=== PATIENT | female | born 1940 | race Caucasian/White ===

== ENCOUNTER 2016-11-11 17:03 | Inpatient (IN) | payer MEDICARE, BC ==
--- NOTE | ~2016-11-11 | EKG ---
PATIENT: NIKITA PANDA UNIT #: [id number] Ventricular Rate: 65 BPM Atrial Rate: 65 BPM P-R Interval: 142 ms QRS Duration: 68 ms Q-T Interval: 368 ms QTC Calculation(Bezet): 382 ms P Blanca: 46 degrees Calculated R Blanca: 51 degrees Calculated T Blanca: 53 degrees Diagnosis Line: Normal sinus rhythm Diagnosis Line: Nonspecific ST and T wave abnormality Diagnosis Line: Abnormal ECG Diagnosis Line: When compared with ECG of 08-APR-2013 09:32, Diagnosis Line: No significant change was found Diagnosis Line: Confirmed by LAURA WASHINGTON MD ([id number]) on 11/12/2016 Diagnosis Line: 11:18:35 PM INTERPRETING MD: FELIX MIXON
--- NOTE | ~2016-11-11 | CT57 ---
[facility] A Service of [facility] & [facility] RADIOLOGY TEXT RESULTS PATIENT: NIKITA PANDA LOCATION: [facility] 569- : 42 UNIT #: [id number] AGE: [address]: Slava Medina MD SEX: F ORDER DR: [id number] [facility] [address] [place], [place] [address] [id number] E MR#: [id number] Acc #: [id number] NAME: NIKITA PANDA. : 1940 SEX: F STUDY DATE/TIME: 11/11/2016 17:22 UNIT: [facility] ROOM: STUDY DESCRIPTION: CT Chest Wo Cont Attending Physician: Vladislav Jimenez M.D. Ordering Physician: Ed Doctor [id number] [facility] Primary Care Physician: Kobi Smalls M.D. MEDICAL IMAGING REPORT This report is preliminary unless electronic signature is present EXAM CT chest without contrast HISTORY Cough and shortness of air for [address] exam was performed with one or more of the following radiation dose reduction techniques: automatic exposure control, adjustment of mA and/or kV according to patient size, and iterative reconstruction. FINDINGS CT chest without contrast demonstrates stable mixed density nodule in the medial left upper lobe abutting the mediastinal pleura, containing a small fat component, compatible with a pulmonary hamartoma, measuring 1.8 cm x 1.3 cm, stable compared to multiple prior CTs dating back to 11/24/2013. Interval resolution of a 6 mm nodule in the medial left upper lobe abutting the mediastinal pleura compared to prior CT 12/26/2014. No focal airspace infiltrates. Advanced bilateral emphysema. Mild linear subpleural scarring or atelectasis in the posterior lower lobes. No pleural effusions. There is a new 6 mm subpleural nodule in the posterior margin of the superior segment left lower lobe. Recommend followup CT chest in 6 months. No adenopathy. Images of the upper abdomen demonstrate fatty replacement of the pancreas and punctate pancreatic calcifications compatible with chronic pancreatitis. IMPRESSION 1. Severe bilateral emphysema. 2. No active disease in the lungs. No focal infiltrates. 3. 6 mm subpleural nodule in the posterior margin of the superior segment left lower lobe is new compared to CT 12/26/2014. Followup CT chest in 6 months is recommended. 4. Stable pulmonary hamartoma in the medial left upper lobe measuring 1.8 cm x 1.3 cm. Interval resolution of an adjacent 6 mm subpleural STS. [facility] A Service of [facility] & [facility] RADIOLOGY TEXT RESULTS PATIENT: NIKITA PANDA LOCATION: [facility] 569-01 : 42 UNIT #: [id number] AGE: [address]: Slava Medina MD SEX: F ORDER DR: nodule in the medial left upper lobe compared to the prior CT 12/26/2014. 5. Findings in the upper abdomen include chronic pancreatitis and fatty replacement of pancreas. Dictated by... Vikash Esparza M.D. THIS IS AN ELECTRONICALLY VERIFIED REPORT Vikash Esparza M.D. at 11/11/2016 10:37 PM DFLaisha/maryan TD: 11/11/2016 21:39 JOB #: [id number] MEDICAL IMAGING REPORT Page 1 of 1 COPY
--- NOTE | ~2016-11-11 | CO ---
Unit #: [id number] #: [id number] Patient: NIKITA PANDA [id number] [address] [address] [id number] I MR#: [id number] NAME: NIKITA PANDA. ROOM: 569 Age: 76 Sex: F Admission Date: 11/11/2016 : 1940 Attending Physician: Carolyn Medina M.D. Primary Care Physician: Kobi Smalls M.D. CONSULTATION REPORT REASON FOR CONSULTATION SVT. HISTORY OF PRESENT ILLNESS This is a 76-year-old white female with a prior cardiac history of a negative Cardiolite stress test in 2010 and a cardiac cath done approximately 2007 with nonobstructive disease per patient. This patient presented to the ER with increasing shortness of breath. She had been treated with antibiotics and a steroid taper for about a week. Yesterday after exposure to bleach fumes her shortness of breath worsened. She was admitted with acute exacerbation of COPD, started on antibiotics. During the night she had a short run of SVT. She is currently normal sinus rhythm in the 70s, denies chest pain or palpitations. Her breathing is somewhat better today. PAST MEDICAL HISTORY 1. Hypertension. 2. Hyperlipidemia. 3. Hypothyroid. 4. History of Graves disease. 5. History of seizures as a child. 6. Cardiac catheterization 2007, records unavailable but nonobstructive disease per patient. 7. Cardiolite stress test 2010 negative for ischemia. 8. Former tobacco abuse. 9. COPD. 10. Obstructive sleep apnea, uses a BiPAP machine at night. PAST SURGICAL HISTORY 1. x2. 2. Partial hysterectomy, total hysterectomy in 1983. 3. Breast biopsies, multiple. 4. Drainage of abscess in right hip. 5. Pelvic mass removal in 1987. 6. Bladder suspension in 2010. 7. Radioactive ablation of the thyroid. 8. Bilateral cataract extraction. 9. Exploratory laparotomy. FAMILY HISTORY Positive family history of coronary artery disease, her mother had CAD, at 85. Father with OR at 65. Brother with OR at 55. Brother afib. Unit #: [id number] #: [id number] Patient: NIKITA PANDA SOCIAL HISTORY She is a former smoker, quit 20 years ago, rare social drinker. ALLERGIES 1. Iodine. 2. Moxifloxacin. HOME MEDICATIONS 1. Spiriva two puffs daily. 2. Advair Diskus two puffs b.i.d. 3. Toprol-XL 50 mg p.o. daily. 4. Cozaar 100 mg p.o. daily. 5. Levothyroxine 75 mcg p.o. daily. 6. Crestor 10 mg p.o. daily. 7. ClariSpray two sprays nasally daily. 8. Zyrtec 10 mg p.o. daily. 9. CoQ10 100 mg p.o. daily. 10. Caltrate Plus one p.o. daily. 11. Vitamin D3 5000 units p.o. daily. 12. Probiotic Pearls one p.o. daily. 13. Centrum Silver one p.o. daily. REVIEW OF SYSTEMS Positive for cough and shortness of breath. Positive for fatigue. Otherwise negative except for what is stated in the HPI. PHYSICAL EXAMINATION GENERAL: This is a pleasant, 76-year-old female. She is alert and oriented x3, resting in bed in no acute distress. VITAL SIGNS: Her temperature 97.7, heart rate 70, 93% sat, respirations 19, blood pressure 190/89 to 144/79. HEENT: Head is atraumatic and normocephalic. Pupils are equal and round. Mucous membranes are moist. NECK: Supple. Trachea midline. Negative for JVD. LUNGS: Clear to auscultation. CARDIOVASCULAR: S1, S2. Regular rate and rhythm. Negative for murmur, rubs or gallops. ABDOMEN: Soft, nontender, and nondistended. EXTREMITIES: Pulses are palpable. No pedal edema. No cyanosis. DP/PT 2+. NEUROLOGIC: Alert and oriented x3. Moves all extremities equally and follows commands without difficulty. DIAGNOSTIC STUDIES LABORATORY RESULTS: Sodium 139, potassium 4, chloride 104, CO2 25, BUN 21, creatinine 0.7, glucose 182, hemoglobin 15.3, hematocrit 46.3, white blood cell count 8.6, platelets 264, AST 17, ALT 26, alkaline phosphatase 64. IMAGING: Chest x-ray shows stable mild cardiac enlargement. Underlying emphysema is stable. There is no dense airspace disease, pleural effusion or pneumothorax. CT of the chest shows severe bilateral emphysema. A 6 mm subpleural nodule in the posterior margin of the superior segment left lower lobe is new compared to a CT in 12/26/2014. Followup CT of the chest in six months is recommended. Stable pulmonary hamartoma in the medial left upper lobe measuring 1.8 x 1.3 cm. Findings in the upper abdomen include Unit #: [id number] #: [id number] Patient: NIKITA PANDA chronic pancreatitis and fatty replacement of pancreas. CARDIOVASCULAR: EKG shows normal sinus rhythm. No acute ischemic changes noted. ASSESSMENT 1. Acute exacerbation of chronic obstructive pulmonary disease. 2. Supraventricular tachycardia, nonsustained. 3. Hypertension. 4. Hyperlipidemia. 5. Hypothyroidism. 6. Obstructive sleep apnea, uses BiPAP with sleep. PLAN This is a 76-year-old white female with recurrent acute exacerbations of COPD. SVT likely due to her pulmonary status. Will obtain a 2D echo to evaluate her LV function. Check lipid profile in the a.m. Optimize beta lo for heart rate control. Check BMP and magnesium level in the a.m. Obtain medical records from Dr. Nettles. Continue statin and ARB. Thank you for asking us to see this patient. We appreciate the consult. Dictated by... Nae Pope APRN for David Mccallum M.D. DOROTHEA/ady TD: 11/12/2016 20:33 JOB #: [id number] CONSULTATION REPORT Page 1 of 1 X X CONSULTATION REPORT
--- NOTE | ~2016-11-11 | CR72 ---
[facility] A Service of [facility] & [facility] RADIOLOGY TEXT RESULTS PATIENT: NIKITA PANDA LOCATION: [place] [address] : 42 UNIT #: [id number] AGE: [address]: Slava Medina MD SEX: F ORDER DR: [id number] [facility] [address] [place], [place] [address] [id number] E MR#: [id number] Acc #: [id number] NAME: NIKITA PANDA : 1940 SEX: F STUDY DATE/TIME: 11/11/2016 15:49 UNIT: [facility] ROOM: STUDY DESCRIPTION: CR Chest Single View Portable Attending Physician: Vladislav Jimenez M.D. Ordering Physician: Tom Villalta M.D. Primary Care Physician: Kobi Smalls M.D. MEDICAL IMAGING REPORT This report is preliminary unless electronic signature is present EXAM Portable chest radiograph. HISTORY Short of breath, cough, congestion for 1 week. COMPARISON Comparison is made to a prior exam from 08/01/2005. FINDINGS Cardiomegaly is present without evidence of vascular congestion. There are background emphysematous changes. This patient has patchy nodular densities identified within both lungs, which I don't clearly identify on the prior PA and lateral chest radiograph from 08/01/2005. Comparison was also made to an exam from July of 2016. These certainly could reflect multifocal pneumonia; however, given background emphysematous changes, I would suggest very short-term CT follow-up. CT could also be considered for further evaluation. No pneumothorax or pleural effusion seen. Dictated by... Karmen Escudero M.D. THIS IS AN ELECTRONICALLY VERIFIED REPORT Karmen Escudero M.D. at 11/12/2016 5:23 PM AFF/js TD: 11/11/2016 18:59 JOB #: [id number] MEDICAL IMAGING REPORT Page 1 of 1 COPY
--- NOTE | ~2016-11-11 | DS ---
Unit #: [id number] #: [id number] Patient: NIKITA PANDA [id number] [place] [id number] [facility]. [place], [place] [address] [id number] I MR#: [id number] NAME: NIKITA PANDA. ROOM: 569 Age: 76 Sex: F Admission Date: 11/11/2016 : 1940 Discharge Date: 11/15/2016 Attending Physician: Carolyn Medina M.D. Primary Care Physician: Kobi Smalls M.D. DISCHARGE SUMMARY HISTORY OF PRESENT ILLNESS This is a 76-year-old lady with a history of COPD. Patient stated that she was out with her neighbor who was power-washing her house, and during that time she inhaled some bleach. Patient stated that the following morning patient developed progressive shortness of air. No vision changes, no fever, no chills, no nausea, no vomiting, and no diarrhea. However, the patient became progressively short of air. When she came to the emergency room, blood pressure was 209/99, white count 11%, and patient was saturating 93% on two liters, and she was therefore admitted to the hospital. HOSPITAL COURSE Cardiology was consulted, and Dr. Mccallum saw the patient. The patient had an echocardiogram which showed impaired LV relaxation. Right ventricular systolic pressure was 38, and patient was found to have no ischemia, however, is still requiring four liters of O2 on discharge. The chest x-ray on presentation showed patchy nodular densities consistent with a pneumonia. Therefore, patient was placed on antibiotics with azithromycin and Rocephin for five days. Patient improved gradually, becoming more active, and therefore, on the seventh she was discharged to home with five days of antibiotics. She is to follow up with Kajal Adkins in approximately two weeks. The patient was found to be hypoxic on four liters and was going to be discharged with home oxygen. She will be reevaluated in the course of a month. DISCHARGE MEDICATIONS 1. Albuterol nebulizer every 4 hours as needed for shortness of air. 2. Advair 250/50 at 2 puffs b.i.d. 3. ClariSpray 2 sprays daily. 4. Tiotropium 2.5 mg Respimat 2 puffs daily. 5. Zyrtec 10 mg daily. 6. Metoprolol 50 mg daily. 7. Cozaar 100 mg daily. 8. Crestor 10 mg daily. 9. Coenzyme CoQ 100 mg daily. 10. Caltrate D 1 tablet daily. 11. Multivitamins 1 tablet daily. 12. Lactobacillus daily. 13. Levothyroxine 75 mcg daily. 14. Cholecalciferol 5000 units daily. 15. Omnicef 300 mg p.o. b.i.d. for 5 days. 16. Oxygen at 4 liters continuously. Unit #: [id number] #: [id number] Patient: NIKITA PANDA FOLLOWUP 1. 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 2. With Kajal Adkins in two weeks. DIET Healthy heart. ACTIVITY As tolerated using oxygen. CONSULTATIONS Dr. Mccallum, Cardiology. DISCHARGE DIAGNOSES 1. Community-acquired pneumonia. 2. Chronic obstructive pulmonary disease exacerbation. 3. Acute on chronic respiratory failure. 4. Diastolic congestive heart failure. 5. Hypertensive urgency. 1. Dictated by... Edelmira Spann TD: 11/17/2016 17:52 JOB #: [id number] DISCHARGE SUMMARY Page 1 of 1 X Slava Medina MD X DISCHARGE SUMMARY
--- NOTE | ~2016-11-11 | HP ---
Unit #: [id number] #: [id number] Patient: NIKITA PANDA [id number] [address] [place], [place] [address] [id number] I MR#: [id number] NAME: NIKITA PANDA ROOM: 569 Age: 76 Sex: F Admission Date: 11/11/2016 : 1940 Attending Physician: Carolyn Medina M.D. Primary Care Physician: Kobi Smalls M.D. HISTORY AND PHYSICAL Ms. Panda is a 76-year-old lady with a history of COPD. She stated that yesterday she was out with her neighbor who was power washing her house and during that time the patient inhaled bleach. The patient stated that the following day, which was this morning, the patient developed progressive shortness of air, nothing (1) , having no vision changes, no fevers, chills, nausea, vomiting, diarrhea, however, progressive shortness of breath and chest tightness. The patient was brought to the emergency room where she was found to be hypertensive. The blood pressure was 209/99, white count 11% and the patient was satting 93% on 2 L where usually she is out of room air. Therefore, the patient was admitted to the hospital. The chest x-ray did not show any evidence of focal lesions. PAST MEDICAL HISTORY Significant for: 1. Hypertension. 2. Hyperlipidemia. 3. Chronic obstructive pulmonary disease. 4. Hypothyroidism, following surgeries for Graves disease. 5. History of seizures, following treatment for Graves disease. 6. History of seizures. 7. History of GERD. 8. History of seasonal allergies. 9. History of pancreatic calcification. 10. History of chronic constipation. PAST SURGICAL HISTORY Significant for: 1. x2. 2. Partial hysterectomy and total hysterectomy in 1983. 3. Breast biopsies in 1986, 1987, and 1988. 4. History of drainage of abscess in the right hip. 5. History of removal of the pelvic mass in 1987. 6. History of bladder suspension in 2010. 7. Radioactive ablation of the thyroid. 8. Bilateral cataract extraction and exploratory laparotomy. 9. Patient is to have a 30 to 40 pack year history of smoking, quit 20 years ago. 10. Occasional social alcohol. 11. No history of polysubstance abuse. FAMILY HISTORY Significant for hypertension, coronary artery disease. Unit #: [id number] #: [id number] Patient: NIKITA PANDA ALLERGIES Avelox. HOME MEDICATIONS Spiriva 2 puffs inhaled daily; Advair two puffs inhaled twice daily; Toprol XL 50 mg daily; Cozaar 100 mg daily; levothyroxine 75 mcg daily; Crestor 10 mg daily; Flonase two sprays daily; Zyrtec 10 mg daily; Coenzyme Q 10 mg daily; Caltrate 1 tablet daily; vitamin B3 daily; probiotics daily; and multivitamin daily. REVIEW OF SYSTEMS As per the history of present illness. Otherwise a 12 point review of system was negative. PHYSICAL EXAMINATION VITAL SIGNS: T. current 97.4, pulse 78, respiratory rate 16, blood pressure 198/105. Saturating 93% on 2 liters nasal cannula. Ins and outs are not recorded. HEENT: Extraocular movements are intact. CHEST: Clear to auscultation bilaterally. CARDIOVASCULAR: Regular rate, no gallop. ABDOMEN: Soft, nontender, nondistended. EXTREMITIES: No evidence of edema. DIAGNOSTIC STUDIES IMAGING STUDIES: CT chest without contrast shows bilateral severe emphysema, stable pulmonary hamartoma, 6 mm pulmonary nodule, followup CT in six months. Cardiomegaly. LABORATORY STUDIES: Cardiac enzymes are negative x2. Flu swab negative. Basic metabolic panel shows glucose of 252, otherwise liver functions are within normal limits. White count 11.1, hemoglobin 16, platelets of 299. ASSESSMENT AND PLAN 1. COPD exacerbation. Will get a viable respiratory swab, continue steroids, and treat as an acute bronchitis five days (2) . 2. Hypertension. Patient states he is significantly anxious and has been trying Xanax to see if the patient can tolerate it. Will also try p.r.n. hydralazine. Thank you very much for consult and allowing us to participate in her care. Dictated by Edelmira Spann TD: 11/12/2016 05:06 JOB #: [id number] Unit #: [id number] #: [id number] Patient: NIKITA PANDA HISTORY AND PHYSICAL Page 1 of 1 X Slava Medina MD HISTORY AND PHYSICAL
--- NOTE | ~2016-11-11 | CR63 ---
[facility] A Service [facility] RADIOLOGY TEXT RESULTS PATIENT: NIKITA PANDA LOCATION: [facility] 56- : 42 UNIT #: [id number] AGE: [address]: Slava Medina MD SEX: F ORDER DR: [id number] [facility] [address] [place], [place] [address] [id number] I MR#: [id number] Acc #: [id number] NAME: NIKITA PANDA. : 1940 SEX: F STUDY DATE/TIME: 11/12/2016 8:47 UNIT: [facility] ROOM: [facility] STUDY DESCRIPTION: CR Chest 2 View Attending Physician: Slava Medina Ordering Physician: Carolyn Medina M.D. Primary Care Physician: Kobi Smalls M.D. MEDICAL IMAGING REPORT This report is preliminary unless electronic signature is present EXAM Two view chest, 11/12/16 HISTORY Short of air. TECHNIQUE PA and lateral radiographs of the chest are presented. COMPARISON STUDIES 11/11/16. Comparison also made to CT examination 11/11/16. FINDINGS No acute bony abnormality. Stable mild cardiac enlargement. Underlying emphysema is stable. The dominant 1.8 cm nodule adjacent to the left lateral aspect of the aortic arch in the left upper lobe is less conspicuous on plain radiography than on yesterday's CT examination. Given the underlying emphysema, it is suspicious for potential malignancy. Characterization with CT PET scan is recommended. A smaller 6 mm nodule in the posteromedial left lower lobe is not evident on the plain radiograph. No new nodules are seen. There is no dense airspace disease, pleural effusion or pneumothorax. Dictated by... Jose José M.D. THIS IS AN ELECTRONICALLY VERIFIED REPORT Jose José M.D. at 11/13/2016 6:36 PM Lizbeth TD: 11/12/2016 11:51 [facility] A Service [facility] RADIOLOGY TEXT RESULTS PATIENT: NIKITA PANDA LOCATION: [facility] 569-01 : 42 UNIT #: [id number] AGE: [address]: Slava Medina MD SEX: F ORDER DR: JOB #: [id number] MEDICAL IMAGING REPORT Page 1 of 1 COPY
[2016-11-11 15:29] LABS: HEMATOCRIT 48.7 % (35.0-45.0); LYMPHOCYTE# 0.4 X10e3 (1.0-3.5); LYMPHOCYTE% 3.2 % (17.0-45.0); MEAN CELL VOLUME 92.2 FL (83-96); MEAN CORPUSCULAR HEMOGLOBIN 30.3 PG (28-34); MEAN CORPUSCULAR HGB CONC 32.9 g/dL (30-36); MEAN PLATELET VOLUME 7.5 FL (6.5-11.5); MONOCYTE# 0.2 X10e3 (0-1.0); MONOCYTE% 1.4 % (3.0-12.0); NEUTROPHIL# 10.6 X10e3 (1.5-7.1); NEUTROPHIL% 95.4 % (40-75); PLATELET COUNT 299 X10e3 (140-420); RED BLOOD COUNT 5.28 X10e (3.90-5.30); RED CELL DISTRIBUTION WIDTH 14.7 % (11.0-15.5); WHITE BLOOD COUNT 11.1 X10e3 (4.0-10.5)
[2016-11-11 15:32] LABS: DIFF IND NO
[2016-11-11 15:37] LABS: POC - CKMB 2.4 ng/mL (0.0-7.9); POC - TROPONIN <0.05 ng/mL (<=0.05)
[2016-11-11 16:06] LABS: ALBUMIN SERUM 3.7 g/dL (3.5-5.0); BILIRUBIN, DIRECT 0.1 mg/dL (0.0-0.2); BILIRUBIN,TOTAL 1.1 mg/dL (0.2-2.0); BUN/CREATININE RATIO 26.25; CALCIUM SERUM 9.3 mg/dL (8.4-10.2); CREATININE SERUM 0.8 mg/dL (0.6-1.4); GLOM FILT RATE Estimated 72.7 mL/min (>60); POTASSIUM 4.5 mmol/L (3.5-5.1)
[2016-11-11 16:20] LABS: INFLUENZA A NEG (NEG); INFLUENZA B NEG (NEG)
[2016-11-11 17:01] LABS: POC - CKMB 2.1 ng/mL (0.0-7.9); POC - TROPONIN <0.05 ng/mL (<=0.05)
[~2016-11-11 17:03] MED LIST: ADVAIR 1001 DISK W/D PO; ADVAIR 250-501 EAC1 IH; ADVAIR 250-501 EACH IH; ASPIRIN PO; ASPIRIN81 MG PO; BENICAR PO; BIAXIN PO; CALCIUM 500 + D1 TAB PO; CALTRATE 600+D PO; CALTRATE-600/VI1 TA1 PO; CARAFATE1 G PO; CENTRUM SILVER PO; CERTAGEN PO; COMBIVENT INH14.7 GM INH; COMBIVENT RESPIM4 GM IH; COMBIVENT14.7 GM INH; COZAAR100 MG PO; CRESTOR PO; CRESTOR10 MG PO; ESTROVEN PO; FLONASE16 GM; GUAIFENESIN600 M1 PO; JOINT MOVEMENT PO; KEPPRA500 M2 PO; MEGA RED PO; MEGARED; MUCINEX DM1 TAB.SR . PO; MUCINEX PO; NEXIUM PO; PLAVIX PO; SYNTHROID PO; SYNTHROID75 MCG PO; TOPROL XL PO; VITAMIN D1000 UNIT PO; VITAMIN D2000 UNIT PO; [UNRECOGNIZED DRUG - OTHER]
[2016-11-11 17:06] LABS: POC - CKMB 1.9 ng/mL (0.0-7.9); POC - TROPONIN <0.05 ng/mL (<=0.05)
[2016-11-11] MEDS ORDERED: SPIRIVA18 MCG INH (19:01)
[2016-11-11] MEDS ORDERED: COZAAR100 MG PO (19:02)
[2016-11-11] MEDS ORDERED: ADVAIR 2501 DISK W/1 INH (19:02)
[2016-11-11] MEDS ORDERED: TOPROL XL50 MG PO (19:02)
[2016-11-11] MEDS ORDERED: CRESTOR10 MG PO (19:03)
[2016-11-11] MEDS ORDERED: LEVOTHYROXINE75 MC1 PO (19:03)
[2016-11-11] MEDS ORDERED: CLARISPRAY9.9 ML (19:04)
[2016-11-11] MEDS ORDERED: ZYRTEC10 M2 PO (19:05)
[2016-11-11] MEDS ORDERED: CO Q10100 MG PO (19:05)
[2016-11-11] MEDS ORDERED: CALTRATE PLUS T1 TAB PO (19:06)
[2016-11-11] MEDS ORDERED: VITAMIN D35000 UNIT PO (19:06)
[2016-11-11] MEDS ORDERED: CENTRUM SILVER1 EAC3 PO (19:07)
[2016-11-11] MEDS ORDERED: PROBIOTIC PEAR1 EACH PO (19:07)
[2016-11-12 05:39] LABS: BASOPHIL% 0.1 % (0-2.5); HEMATOCRIT 46.3 % (35.0-45.0); HEMOGLOBIN 15.3 gm/dL (12.0-16.0); LYMPHOCYTE# 0.8 X10e3 (1.0-3.5); LYMPHOCYTE% 9.2 % (17.0-45.0); MEAN CELL VOLUME 92.3 FL (83-96); MEAN CORPUSCULAR HEMOGLOBIN 30.6 PG (28-34); MEAN CORPUSCULAR HGB CONC 33.1 g/dL (30-36); MEAN PLATELET VOLUME 7.6 FL (6.5-11.5); MONOCYTE# 0.2 X10e3 (0-1.0); MONOCYTE% 2.3 % (3.0-12.0); NEUTROPHIL# 7.6 X10e3 (1.5-7.1); NEUTROPHIL% 88.4 % (40-75); PLATELET COUNT 264 X10e3 (140-420); RED BLOOD COUNT 5.01 X10e (3.90-5.30); RED CELL DISTRIBUTION WIDTH 14.8 % (11.0-15.5); WHITE BLOOD COUNT 8.6 X10e3 (4.0-10.5)
[2016-11-12 05:40] LABS: DIFF IND NO
[2016-11-12 06:14] LABS: BLOOD UREA NITROGEN 21 mg/dL (9-23); CARBON DIOXIDE 25 mmol/L (22-31); CHLORIDE 104 mmol/L (100-111); CREATININE SERUM 0.7 mg/dL (0.6-1.4); GLOM FILT RATE Estimated 85.4 mL/min (>60); GLUCOSE FASTING 186 mg/dL (70-110); SODIUM 139 mmol/L (135-145)
[2016-11-12 06:26] LABS: PROCALCITONIN <0.05 NG/ML
[2016-11-13 06:41] LABS: HEMATOCRIT 45.9 % (35.0-45.0); MEAN CELL VOLUME 92.7 FL (83-96); MEAN CORPUSCULAR HEMOGLOBIN 30.3 PG (28-34); MEAN CORPUSCULAR HGB CONC 32.7 g/dL (30-36); MEAN PLATELET VOLUME 7.5 FL (6.5-11.5); RED BLOOD COUNT 4.95 X10e (3.90-5.30); RED CELL DISTRIBUTION WIDTH 14.8 % (11.0-15.5); WHITE BLOOD COUNT 11.4 X10e3 (4.0-10.5)
[2016-11-13 07:08] LABS: BUN/CREATININE RATIO 32.22; CREATININE SERUM 0.9 mg/dL (0.6-1.4); POTASSIUM 4.1 mmol/L (3.5-5.1)
[2016-11-13 14:11] LABS: MAGNESIUM 2.1 mg/dL (1.6-3.0)
[2016-11-15 05:59] LABS: HEMATOCRIT 46.6 % (35.0-45.0); HEMOGLOBIN 15.1 gm/dL (12.0-16.0); MEAN CELL VOLUME 94.2 FL (83-96); MEAN CORPUSCULAR HEMOGLOBIN 30.4 PG (28-34); MEAN CORPUSCULAR HGB CONC 32.3 g/dL (30-36); MEAN PLATELET VOLUME 7.6 FL (6.5-11.5); RED BLOOD COUNT 4.95 X10e (3.90-5.30); WHITE BLOOD COUNT 7.2 X10e3 (4.0-10.5)
[2016-11-15 06:40] LABS: BUN/CREATININE RATIO 26.25; CALCIUM SERUM 8.9 mg/dL (8.4-10.2); CREATININE SERUM 0.8 mg/dL (0.6-1.4); GLOM FILT RATE Estimated 72.7 mL/min (>60); POTASSIUM 4.4 mmol/L (3.5-5.1)
[2016-11-15] MEDS ORDERED: OMNICEF300 MG PO (17:13)
[2017-01-22] MEDS ORDERED: PANTOPRAZOLE SO40 MG PO (15:01)
== END 2016-11-15 17:51 | disposition home or self-care (01) | DRG 189 ==
LOC: CED 17:03 → C5B 19:25 → C5C 21:48
PROVIDERS: Emergency Medicine; Internal Medicine Cardiovascular Disease; Internal Medicine Pulmonary Disease
DX: J96.21 Acute and chronic respiratory failure with hypoxia (principal); J18.9 Pneumonia, unspecified organism; J44.0 Chronic obstructive pulmonary disease with (acute) lower respiratory infection; I50.30 Unspecified diastolic (congestive) heart failure; J44.1 Chronic obstructive pulmonary disease with (acute) exacerbation; I47.1 Supraventricular tachycardia; I16.0 Hypertensive urgency; Z91.041 Radiographic dye allergy status; Z90.710 Acquired absence of both cervix and uterus; G47.33 Obstructive sleep apnea (adult) (pediatric); Z87.891 Personal history of nicotine dependence; E78.5 Hyperlipidemia, unspecified
CPT/HCPCS: 36415; 71010; 71020; 71250; 80048; 80061; 80076; 82308; 82553; 83735; 84484; 85025; 85027; 87070; 87205; 87633; 87804; 93005; 93306; 94640; 94760; 94762; 97161; 99285; G8978-GP; G8979-GP; G8980-GP; J0360; J0456; J0696; J1650; J2930

== ENCOUNTER → 2017-01-22 | Day surgery (SDC) | payer MEDICARE, BC ==
[~2017-01-22] MED LIST changes: +ADVAIR 2501 DISK W/1 INH; +CALTRATE PLUS T1 TAB PO; +CENTRUM SILVER1 EAC3 PO; +CLARISPRAY9.9 ML; +CO Q10100 MG PO; +LEVOTHYROXINE75 MC1 PO; +OMNICEF300 MG PO; +PANTOPRAZOLE SO40 MG PO; +PROBIOTIC PEAR1 EACH PO; +SPIRIVA18 MCG INH; +TOPROL XL50 MG PO; +VITAMIN D35000 UNIT PO; +ZYRTEC10 M2 PO
--- NOTE | ~2017-01-22 | OR ---
Unit #: [id number] #: [id number] Patient: NIKITA PANDA [id number] [address] [place], [place] [address] [id number] O MR#: [id number] NAME: NIKITA PANDA ROOM: Date of Procedure: 01/22/2017 Admission Date: 01/22/2017 Surgeon: Shadi Aaron M.D. : 1940 Attending Physician: Shadi Aaron M.D. Referring Physician: Shadi Aaron M.D. Primary Care Physician: Kobi Smalls M.D. OPERATIVE REPORT PRIMARY CARE PHYSICIAN Kobi Smalls M.D. PREOPERATIVE DIAGNOSES The patient presented with history of dyspepsia. In addition, she needs colorectal cancer surveillance having had personal history of colon polyps. PROCEDURES PERFORMED 1. Upper gastrointestinal endoscopy and biopsy. 2. Upper gastrointestinal endoscopy and dilation as well as sigmoidoscopy for an attempted colonoscopy. POSTOPERATIVE DIAGNOSES For upper endoscopy: 1. The patient had mild diffuse prepyloric antral gastritis. A biopsy obtained from the antrum for CLOtest. 2. Distal esophageal ring. The latter was felt to be nonobstructing, but was dilated using a 60-[place] dilator. 3. Rest of the examination up to third part of duodenum was normal. For colonoscopy: 1. The examination was extremely difficult due to severe sigmoid diverticulosis and stricture in the sigmoid. The procedure was attempted with a pediatric colonoscope followed by an upper GI scope with identical outcome. Intubation beyond the mid to proximal sigmoid was impossible due to extremely acute superior sigmoidal angle and high risk of perforation with perseverance and persistence. The procedure was therefore aborted. RECOMMENDATIONS The patient should not have any attempted colonoscopy in the future. She was advised to use pantoprazole 40 mg p.o. daily. She will be followed up in the office in 3 months' time. SEDATION USED MAC. DESCRIPTION OF PROCEDURE Following detailed explanation of the potential risks and complications of an upper endoscopy and a colonoscopy, namely perforation, bleeding, and complications related to sedation, the patient was brought to GI lab and laid in the left lateral decubitus position. Lubricated tip of the Olympus video upper endoscope was passed through the bite block into the proximal esophagus under direct vision. The entire esophageal mucosa was Unit #: [id number] #: [id number] Patient: NIKITA PANDA examined and the patient was noted to have distal esophageal mucosal ring. The latter was felt to be nonobstructing. The scope was then advanced into the gastric cavity and the latter was insufflated. Mucosa of the fundus, body, and antrum examined and mild diffuse prepyloric antral erythema was noted indicating antral gastritis. Pylorus was intubated with visualization of the normal duodenal bulb and second and third part of the duodenum. Upon withdrawal and retroflexion, incisura, cardia, and greater curve examined and a biopsy obtained from the antrum for CLOtest. The scope was then withdrawn in the distal esophagus. Entire esophageal mucosa was examined all the way up to pharynx. No additional findings noted. A 60-[place] dilator was introduced through the oral cavity and advanced into the esophagus. Relook endoscopy showed minimal bleeding and the area of dilation being affected. It was thoroughly washed with water and good hemostasis was achieved. The scope was then withdrawn all the way up to pharynx. No additional findings noted. The examination table was then turned by 180 degrees and the patient positioned for a colonoscopy. A digital rectal examination was performed, which was normal. Lubricated tip of the Olympus video colonoscope was inserted through the anus and advanced under direct vision. The scope was advanced, past rectum into the sigmoid colon. Severe tight diverticular disease was noted making intubation was very difficult and with a high risk of perforation. The scope was therefore withdrawn and replaced with an upper GI scope with identical outcome. The patient was having hard time retaining air and frequently passing the insufflated air back immediately making intubation fraught with danger and perforation. The scope was therefore withdrawn. The patient returned to the recovery area. She tolerated the procedure without any postprocedure complications. Dictated by... Edelmira Carrion TD: 01/22/2017 23:59 JOB #: [id number] OPERATIVE REPORT Page 1 of 1 X Shadi Aaron MD PROCEDURE OPERATIVE NOTE
== END | disposition home or self-care (01) ==
LOC: COPS 12:06
DX: Z12.11 Encounter for screening for malignant neoplasm of colon (principal); K29.70 Gastritis, unspecified, without bleeding; K22.2 Esophageal obstruction; K57.30 Diverticulosis of large intestine without perforation or abscess without bleeding; K56.69 Other intestinal obstruction; E03.9 Hypothyroidism, unspecified; I10 Essential (primary) hypertension; G47.30 Sleep apnea, unspecified; E05.00 Thyrotoxicosis with diffuse goiter without thyrotoxic crisis or storm; J44.9 Chronic obstructive pulmonary disease, unspecified; K21.9 Gastro-esophageal reflux disease without esophagitis; Z86.010 Personal history of colon polyps; Z87.891 Personal history of nicotine dependence; Z91.041 Radiographic dye allergy status; Z91.040 Latex allergy status; Z88.1 Allergy status to other antibiotic agents; Z79.51 Long term (current) use of inhaled steroids; Z79.899 Other long term (current) drug therapy; Z90.710 Acquired absence of both cervix and uterus; Z98.41 Cataract extraction status, right eye; Z98.42 Cataract extraction status, left eye; Z98.890 Other specified postprocedural states
CPT/HCPCS: 87077

== ENCOUNTER → 2017-02-05 | Outpatient (CLI) | payer MEDICARE, BC ==
--- NOTE | ~2017-02-05 | US84 ---
[id number] [address] [address] [id number] O MR#: [id number] Acc #: [id number] NAME: NIKITA PANDA : 1940 SEX: F STUDY DATE/TIME: 02/05/2017 9:23 UNIT: [facility]IV ROOM: STUDY DESCRIPTION: US LE Veins Complete [place] Stdy Attending Physician: Kobi Smalls M.D. Referring Physician: Kobi Smalls M.D. Ordering Physician: Kobi Smalls M.D. Primary Care Physician: Kobi Smalls M.D. MEDICAL IMAGING REPORT This report is preliminary unless electronic signature is present. EXAM Bilateral lower extremity venous duplex 02/05/2017 HISTORY Bilateral lower extremity edema for 4 days. Evaluate for deep vein thrombosis. TECHNIQUE Venous ultrasound examination of both lower extremities was performed using grayscale, spectral Doppler and color flow Doppler imaging. FINDINGS The examination is negative. There is no evidence of deep venous thrombus from the groin to the lower calf bilaterally. Visualized greater saphenous veins are also patent. IMPRESSION Negative examination. No evidence of lower extremity DVT. Dictated by... Elbert Benjamin M.D. THIS IS AN ELECTRONICALLY VERIFIED REPORT Elbert Benjamin M.D. at 02/05/2017 5:04 PM Mark TD: 02/05/2017 11:53 JOB #: [id number] MEDICAL IMAGING REPORT Page 1 of 1
== END | disposition home or self-care (01) ==
LOC: SNIV 09:18
DX: M79.89 Other specified soft tissue disorders (principal)
CPT/HCPCS: 93970

== ENCOUNTER → 2017-04-15 | Outpatient (CLI) | payer MEDICARE, BC ==
--- NOTE | ~2017-04-15 | CT57 ---
[facility] A Service [facility] RADIOLOGY TEXT RESULTS PATIENT: NIKITA PANDA LOCATION: [facility] #: [id number] : [birth year] UNIT #: [id number] AGE: [address]: Audi Andrade MD SEX: F ORDER DR: [id number] [facility] [address] [place], [place] [address] [id number] O MR#: [id number] [facility] #: [id number] NAME: NIKITA PANDA : 1940 SEX: F STUDY DATE/TIME: 04/15/2017 8:16 UNIT: [facility] ROOM: STUDY DESCRIPTION: CT Chest Wo Cont Attending Physician: Audi Andrade M.D. Referring Physician: Audi Andrade M.D. Ordering Physician: Audi Andrade M.D. Primary Care Physician: Kobi Smalls M.D. MEDICAL IMAGING REPORT This report is preliminary unless electronic signature is present EXAM CT chest INDICATIONS Pulmonary nodule. Restaging. TECHNIQUE CT chest without contrast. Coronal and sagittal reconstructions were obtained. The CT exam was performed with one or more of the following radiation dose reduction techniques: automatic exposure control, adjustment of mA and/or kV according to patient size, and iterative reconstruction. COMPARISON Multiple CT scan of the chest dating back to December 2009. FINDINGS The lobulated low-attenuation pulmonary nodule in the left upper lobe measures 1.9 x 1.4. This is unchanged from December 2014 exam where it measured 1.7 x 1.4 cm. This nodule measured 1.6 x 1.3 cm on December 2009. The nodule has low internal attenuation consistent with fat density. This is consistent with a benign hamartoma. A subpleural nodule in the superior segment left lower lobe has resolved. There is a new pulmonary nodule immediately beneath the hamartoma measuring 0.5 cm (image 50). There is severe emphysema. Central airways are patent. No pathologically enlarged mediastinal or hilar lymph nodes. No [facility] A Service [facility] RADIOLOGY TEXT RESULTS PATIENT: NIKITA PANDA [id number] : [birth year] UNIT #: [id number] AGE: [address]: Audi Andrade MD SEX: F ORDER DR: pericardial or pleural effusion. Moderate coronary calcifications. No acute osseous abnormalities. IMPRESSION 1. New 0.5 cm pulmonary nodule immediately beneath the large stable hamartoma. A precautionary followup is recommended. 2. A subpleural pulmonary nodule in the left lower lobe described on the prior study has resolved. 3. Severe emphysema. 1. Dictated by... Kory Sorto M.D. THIS IS AN ELECTRONICALLY VERIFIED REPORT Kory Sorto M.D. at 04/16/2017 9:44 AM MONA/jose TD: 04/15/2017 13:24 JOB #: [id number] MEDICAL IMAGING REPORT Page 1 of 1 COPY
== END | disposition home or self-care (01) ==
LOC: CCAT 04-10 10:40
DX: R22.2 Localized swelling, mass and lump, trunk (principal); R91.1 Solitary pulmonary nodule; J43.9 Emphysema, unspecified
CPT/HCPCS: 71250